=== PATIENT | male | born 1990 | race Caucasian/White ===

== ENCOUNTER 2018-01-26 01:48 | Emergency (ER) | payer OTHER ==
[2018-01-26 01:56] VITALS: O2SAT 98
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
[2018-01-26 03:28] VITALS: BP 113/71; PULSE 79; RESP 20; TEMP 98.4
--- NOTE | 2018-01-26 08:13 | RAD ---
Chest x-ray two views History: Chest pain. Comparison: None available. Findings: Mild venous congestion. Mild right hilar prominence. Right paratracheal prominence may represent prominent vasculature. Degenerative changes in the spine. Impression: Mild venous congestion.
== END 2018-01-26 03:30 | disposition home or self-care (01) ==
LOC: C.ER 01:48 → SUPCPDRO 01:48 → C.ER 03:30
DX: S20.211A Contusion of right front wall of thorax, initial encounter (principal); V43.52XA Car driver injured in collision with other type car in traffic accident, initial encounter; Y92.410 Unspecified street and highway as the place of occurrence of the external cause